=== PATIENT | female | born 2000 | race Caucasian/White ===

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

== ENCOUNTER 2022-01-16 06:18 | Emergency (ER) | payer BC, MEDICAID ==
[2022-01-16 07:17] VITALS: BP 119/80; PULSE 98
[2022-01-16 08:14] LABS: CORONAVIRUS COVID-19 NAA NEGATIVE (NEGATIVE); RESPIRATORY SYNCYTIAL VIR NAA NEGATIVE (NEGATIVE)
== END 2022-01-16 08:40 | disposition home or self-care (01) ==
LOC: DL.ED 06:18
DX: J06.9 Acute upper respiratory infection, unspecified (principal); Z20.822 Contact with and (suspected) exposure to COVID-19
CPT/HCPCS: 0241U; 99283

== ENCOUNTER 2022-01-18 06:50 | Emergency (ER) | payer MEDICAID ==
[2022-01-18] MEDS ORDERED: Ondansetron 4 MG/2 ML SDV IVPUSH ONE (08:17)
[2022-01-18 08:43] LABS: ANION GAP 12.5 mEq/L (7-13); CHLORIDE,CL 101 mmol/L (98-107); ESTIMATED GFR 125 mL/min (>=60); SODIUM,NA 138 mmol/L (136-145)
[2022-01-18 08:48] LABS: AMPHETAMINES,URINE NEGATIVE (NEGATIVE); BARBITURATES,URINE NEGATIVE (NEGATIVE); BENZODIAZEPINE,URINE NEGATIVE (NEGATIVE); MDMA (ECSTASY), URINE NEGATIVE (NEGATIVE); METHADONE,URINE NEGATIVE (NEGATIVE); METHAMPHETAMINES,URINE NEGATIVE (NEGATIVE); OPIATES,URINE NEGATIVE (NEGATIVE); OXYCODONE,URINE NEGATIVE (NEGATIVE); PHENCYCLIDINE,URINE NEGATIVE (NEGATIVE); TCA,URINE NEGATIVE (NEGATIVE)
[2022-01-18 08:48] LABS: CORONAVIRUS COVID-19 NAA NEGATIVE (NEGATIVE)
[2022-01-18] MEDS ORDERED: Iopamidol 612 MG/ML 100 ML Bottle IVPUSH ONE (08:49)
[2022-01-18 08:54] VITALS: BP 135/92; PULSE 107
[2022-01-18] MEDS ORDERED: HYDROmorphone 0.5 MG/0.5 ML Syringe IVPUSH ONE ×2 (08:56→10:54)
== END 2022-01-18 11:02 ==
LOC: DL.ED 06:50
DX: K35.30 Acute appendicitis with localized peritonitis, without perforation or gangrene (principal); Z20.822 Contact with and (suspected) exposure to COVID-19
CPT/HCPCS: 0240U; 36415; 74177; 80053; 80305; 81001; 81025; 83605; 85025; 87040; 96374; 96375; 96376; 99284; J1170; J2405; Q9967

== ENCOUNTER 2022-01-26 10:04 | Emergency (ER) | payer MEDICAID ==
[2022-01-26] MEDS ORDERED: Sodium Chloride 0.9% 10 ML Syringe FLUSH PRN (10:17)
[2022-01-26 10:47] VITALS: BP 121/72; PULSE 120
[2022-01-26 11:16] LABS: ANION GAP 16.5 mEq/L (7-13); CHLORIDE,CL 96 mmol/L (98-107); SODIUM,NA 133 mmol/L (136-145)
[2022-01-26 11:22] LABS: ESTIMATED GFR 63 mL/min (>=60)
[2022-01-26] MEDS ORDERED: Sodium Chloride 0.9% 1,000 ML IV ONE ×2 (11:27→11:46)
[2022-01-26] MEDS ORDERED: Iopamidol 755 Mg/ML 100 ML Bottle IVPUSH ONE (11:46)
[2022-01-26] MEDS ORDERED: Piperacillin/Tazobactam 3.375 GM in Sodium Chloride 0.9% 100 ML IV ONE (14:28)
[2022-01-26] MEDS ORDERED: Vancomycin 2 GM in Sodium Chloride 0.9% 500 ML IV ONE (14:28)
[2022-01-26] MEDS ORDERED: HYDROmorphone 1 MG/ML Syringe IVPUSH ONE (17:01)
[2022-01-26] MEDS ORDERED: Acetaminophen 500 MG Tab PO ONE (17:01)
== END 2022-01-26 18:28 ==
LOC: DL.ED 10:04
DX: A41.9 Sepsis, unspecified organism (principal); R65.20 Severe sepsis without septic shock; N17.9 Acute kidney failure, unspecified; R00.0 Tachycardia, unspecified; E11.9 Type 2 diabetes mellitus without complications; E66.9 Obesity, unspecified; Z68.43 Body mass index [BMI] 50.0-59.9, adult; Z79.899 Other long term (current) drug therapy; Z79.84 Long term (current) use of oral hypoglycemic drugs; Z20.822 Contact with and (suspected) exposure to COVID-19
CPT/HCPCS: 36415; 71260; 74177; 80053; 81001; 82150; 83605; 83690; 83735; 84145; 85025; 86140; 87040; 87086; 87635; 93005; 96361; 96365; 96366; 96367; 96375; 99285; A9270; J1170; J2543; J3370; J3490; J7030; J7040; Q9967; U0002

== ENCOUNTER 2022-02-26 03:48 | Emergency (ER) | payer MEDICAID ==
[2022-02-26 04:22] VITALS: BP 139/98; PULSE 112
== END 2022-02-26 04:33 | disposition home or self-care (01) ==
LOC: DL.ED 03:48
DX: L76.22 Postprocedural hemorrhage of skin and subcutaneous tissue following other procedure (principal); E11.9 Type 2 diabetes mellitus without complications; E66.9 Obesity, unspecified; Z68.43 Body mass index [BMI] 50.0-59.9, adult; Z86.16 Personal history of COVID-19
CPT/HCPCS: 99283

== ENCOUNTER 2022-06-18 15:33 | Emergency (ER) | payer MEDICAID ==
[2022-06-18 16:07] VITALS: BP 142/100; PULSE 113
== END 2022-06-18 16:25 | disposition home or self-care (01) ==
LOC: DL.ED 15:33
DX: J06.9 Acute upper respiratory infection, unspecified (principal); E11.9 Type 2 diabetes mellitus without complications; E66.9 Obesity, unspecified; Z68.43 Body mass index [BMI] 50.0-59.9, adult
CPT/HCPCS: 87081; 87430; 99283